=== PATIENT | male | born 1960 | race Two or more races ===

== ENCOUNTER 2023-05-29 17:35 | Inpatient (IN) | payer OTHER ==
[~2023-05-29] VITALS: Ht 175.3 cm; Wt 87.5 kg
[2023-05-29] MEDS ORDERED: TACR1CAP2 PO (19:52)
[2023-05-29 20:00] VITALS: BP 117/60; TEMP 97.9; O2SAT 93; O2SAT 96
[2023-05-29] MEDS ORDERED: LOSA100T31 PO (20:00)
[2023-05-29] MEDS ORDERED: OMEP40CA21 PO (20:40)
[2023-05-29] MEDS ORDERED: NIFE90TA2 PO (20:40)
[2023-05-29] MEDS ORDERED: PRED5TAB48 PO (20:40)
[2023-05-29] MEDS ORDERED: TRAM50TA2 PO (20:40)
[2023-05-29] MEDS ORDERED: HYDR100T27 PO (20:40)
[2023-05-29] MEDS ORDERED: CHOL100043 PO (20:40)
[2023-05-29] MEDS ORDERED: ROSU20TA2 PO (20:40)
[2023-05-29] MEDS ORDERED: MYCO500T PO (20:41)
[2023-05-29] MEDS ORDERED: CINA30TA2 PO (20:41)
[2023-05-29] MEDS ORDERED: FURO-145 PO (20:41)
[2023-05-29] MEDS ORDERED: INSU100V11 SQ (20:41)
[2023-05-29] MEDS ORDERED: APIX5TAB4 PO (20:41)
[2023-05-29] MEDS ORDERED: MORPHINE SULFATE INJ 4 MG/ML DISP.SYRIN IV PRN (22:30)
[2023-05-30] MEDS ORDERED: CEFEPIME 1 GM in IV D5W 50 ML IV SCH ×2
[2023-05-30] MEDS ORDERED: MAG HYDROX/AL HYDROX/SIMETH 30 ML UDC PO PRN
[2023-05-30] MEDS ORDERED: ONDANSETRON HCL/PF 4 MG/2 ML VIAL IVP PRN
[2023-05-30] MEDS ORDERED: ZOLPIDEM TARTRATE 5 MG TABLET PO PRN
[2023-05-30] MEDS ORDERED: Z GUARD REMEDY 4 OZ OINT TP PRN
[2023-05-30] MEDS ORDERED: ACETAMINOPHEN 325 MG TABLET PO PRN
[2023-05-30] MEDS ORDERED: DEXTROSE 50%-WATER 50 ML DISP.SYRIN IV PRN
[2023-05-30] MEDS ORDERED: MAGNESIUM HYDROXIDE 30 ML UDC PO PRN
[2023-05-30] MEDS ORDERED: CEFEPIME 1 GM VIAL ONE (00:42)
[2023-05-30] MEDS ORDERED: VANCOMYCIN 1 GM in IV D5W 250ml IV ONE (01:00)
[2023-05-30] MEDS ORDERED: VANCOMYCIN 1 GM /D5W 250 ML PB IV ONE (02:19)
[2023-05-30 05:57] LABS: BASOPHILS # (AUTO) 0.1 K/uL (0.0-0.2); EOSINOPHILS # (AUTO) 0.1 K/uL (0.0-0.7); EOSINOPHILS % (AUTO) 0.8 % (0.0-6.0); HEMATOCRIT 49 % (39-51); HEMOGLOBIN 15.9 g/dL (13.5-17.5); LYMPHOCYTES # (AUTO) 0.8 K/uL (0.8-4.8); LYMPHOCYTES % (AUTO) 8.4 % (20.0-44.0); MEAN CORPUSCULAR HEMOGLOBIN 29 PG (26.0-33.0); MEAN CORPUSCULAR HGB CONC 33 g/dl (31.0-36.0); MEAN CORPUSCULAR VOLUME 88 fL (80-96); MONOCYTES # (AUTO) 0.9 K/uL (0.1-1.30); MONOCYTES % (AUTO) 9.3 % (2.0-12.0); NEUTROPHILS # (AUTO) 7.5 K/uL (1.8-8.9); NEUTROPHILS % (AUTO) 80.5 % (43.0-81.0); PLATELET COUNT (AUTO) 233 K/uL (150-450); RED BLOOD CELL COUNT(AUTO) 5.56 MIL/uL (4.5-6.0); RED CELL DISTRIBUTION WIDTH 17.1 % (11.5-15.0); WHITE BLOOD COUNT (AUTO) 9.4 K/uL (4.3-11.0)
[2023-05-30 06:22] LABS: CALCIUM, SERUM 10.1 mg/dL (8.5-10.1); CREATININE 0.9 mg/dL (0.6-1.3); MAGNESIUM 1.7 mg/dL (1.8-2.4); PHOSPHORUS 2.4 mg/dL (2.5-4.9); POTASSIUM 4.2 mmol/L (3.5-5.1)
[2023-05-30 06:25] LABS: THYROID STIMULATING HORMONE 0.613 uIU/mL (0.358-3.74)
[2023-05-30] MEDS: BLOOD SUGAR DIAGNOSTIC 1 EACH STRIP IN SCH ×4 (06:34→22:31)
[2023-05-30] MEDS: INSULIN REGULAR, HUMAN 100 UNIT/ML 3 ML VIAL SQ PRN ×4 (06:35→23:04)
[2023-05-30 08:00] VITALS: BP 121/50; TEMP 98.4; O2SAT 96
[2023-05-30] MEDS ORDERED: CEFEPIME 1 GM in IV D5W 50 ML IV ONE (08:00)
[2023-05-30] MEDS: TACROLIMUS ANHYDROUS 0.5 MG CAPSULE PO SCH ×2 (08:46→21:47)
[2023-05-30] MEDS: CINACALCET HCL 30 MG TABLET PO SCH (08:46)
[2023-05-30] MEDS: CHOLECALCIFEROL 1,000 UNIT TABLET (VIT D3) PO SCH (08:47)
[2023-05-30] MEDS: predniSONE 5 MG TABLET PO SCH (08:47)
[2023-05-30] MEDS: ATORVASTATIN 40 MG TABLET PO SCH (08:47)
[2023-05-30] MEDS: FUROSEMIDE 20 MG TABLET PO SCH (08:47)
[2023-05-30] MEDS: MYCOPHENOLATE MOFETIL 250 MG CAPSULE PO SCH ×2 (08:47→21:47)
[2023-05-30] MEDS: hydrALAZINE HCL 50 MG TABLET PO SCH ×2 (08:50→21:49)
[2023-05-30] MEDS: LOSARTAN POTASSIUM 50 MG TABLET PO SCH (08:51)
[2023-05-30] MEDS: NIFEdipine XL (30MG) 30 MG TAB PO SCH (08:52)
[2023-05-30] MEDS: CEFEPIME 2 GM in IV D5W 100 ML IV SCH ×2 (08:54→21:27)
[2023-05-30] MEDS: APIXABAN 5 MG TABLET PO SCH ×2 (08:54→21:48)
[2023-05-30] MEDS ORDERED: Medication Not On Formulary EA (Rosuvastatin Calcium (Crestor) 20 MG) PO SCH (09:00)
[2023-05-30] MEDS ORDERED: PANTOPRAZOLE 40 MG VIAL IV SCH (09:00)
[2023-05-30] MEDS ORDERED: MAGNESIUM OXIDE 400 MG TABLET PO ONE (09:30)
[2023-05-30] MEDS: VANCOMYCIN 1 GM in IV D5W 250ml IV SCH (13:33)
[2023-05-30 16:00] VITALS: BP 140/63; TEMP 98.2; O2SAT 93
[2023-05-30] MEDS ORDERED: K PHOS NEUTRAL 250 MG TABLET PO ONE (16:00)
[2023-05-30 20:00] VITALS: BP 134/67; TEMP 98.4; O2SAT 94
[2023-05-31] MEDS: VANCOMYCIN 1 GM in IV D5W 250ml IV SCH ×2 (01:30→14:18)
[2023-05-31 06:43] LABS: BASOPHILS # (AUTO) 0.1 K/uL (0.0-0.2); BASOPHILS % (AUTO) 0.9 % (0.0-2.0); EOSINOPHILS # (AUTO) 0.2 K/uL (0.0-0.7); EOSINOPHILS % (AUTO) 2.4 % (0.0-6.0); HEMATOCRIT 50 % (39-51); HEMOGLOBIN 16.2 g/dL (13.5-17.5); LYMPHOCYTES # (AUTO) 0.7 K/uL (0.8-4.8); LYMPHOCYTES % (AUTO) 7.7 % (20.0-44.0); MEAN CORPUSCULAR HEMOGLOBIN 28 PG (26.0-33.0); MEAN CORPUSCULAR HGB CONC 32 g/dl (31.0-36.0); MEAN CORPUSCULAR VOLUME 88 fL (80-96); MONOCYTES # (AUTO) 0.9 K/uL (0.1-1.30); MONOCYTES % (AUTO) 9.7 % (2.0-12.0); NEUTROPHILS # (AUTO) 7.4 K/uL (1.8-8.9); NEUTROPHILS % (AUTO) 79.3 % (43.0-81.0); PLATELET COUNT (AUTO) 250 K/uL (150-450); RED BLOOD CELL COUNT(AUTO) 5.72 MIL/uL (4.5-6.0); RED CELL DISTRIBUTION WIDTH 16.5 % (11.5-15.0); WHITE BLOOD COUNT (AUTO) 9.3 K/uL (4.3-11.0)
[2023-05-31] MEDS: BLOOD SUGAR DIAGNOSTIC 1 EACH STRIP IN SCH ×4 (06:46→21:31)
[2023-05-31] MEDS: INSULIN REGULAR, HUMAN 100 UNIT/ML 3 ML VIAL SQ PRN ×4 (06:52→21:43)
[2023-05-31 07:02] LABS: CALCIUM, SERUM 9.9 mg/dL (8.5-10.1); CREATININE 0.9 mg/dL (0.6-1.3); MAGNESIUM 1.8 mg/dL (1.8-2.4); PHOSPHORUS 2.7 mg/dL (2.5-4.9); POTASSIUM 3.9 mmol/L (3.5-5.1)
[2023-05-31 08:00] VITALS: BP 144/77; TEMP 98.2; O2SAT 99
[2023-05-31] MEDS: CHOLECALCIFEROL 1,000 UNIT TABLET (VIT D3) PO SCH (08:24)
[2023-05-31] MEDS: TACROLIMUS ANHYDROUS 0.5 MG CAPSULE PO SCH ×2 (08:24→21:31)
[2023-05-31] MEDS: CEFEPIME 2 GM in IV D5W 100 ML IV SCH ×2 (08:24→21:07)
[2023-05-31] MEDS: PANTOPRAZOLE 40 MG TABLET.DR PO SCH (08:25)
[2023-05-31] MEDS: MYCOPHENOLATE MOFETIL 250 MG CAPSULE PO SCH ×2 (08:25→21:28)
[2023-05-31] MEDS: predniSONE 5 MG TABLET PO SCH (08:25)
[2023-05-31] MEDS: ATORVASTATIN 40 MG TABLET PO SCH (08:25)
[2023-05-31] MEDS: FUROSEMIDE 20 MG TABLET PO SCH (08:26)
[2023-05-31] MEDS: LOSARTAN POTASSIUM 50 MG TABLET PO SCH (08:26)
[2023-05-31] MEDS: NIFEdipine XL (30MG) 30 MG TAB PO SCH (08:26)
[2023-05-31] MEDS: hydrALAZINE HCL 50 MG TABLET PO SCH ×2 (08:27→21:29)
[2023-05-31] MEDS: APIXABAN 5 MG TABLET PO SCH ×2 (08:30→21:31)
[2023-05-31 16:00] VITALS: BP 142/82; TEMP 98.2; O2SAT 96
[2023-05-31 20:57] VITALS: BP 137/56; TEMP 98.2; O2SAT 100
[2023-06-01] MEDS: VANCOMYCIN 1 GM in IV D5W 250ml IV SCH ×2 (02:41→14:08)
[2023-06-01 06:07] LABS: CALCIUM, SERUM 10.1 mg/dL (8.5-10.1); CREATININE 1.2 mg/dL (0.6-1.3); MAGNESIUM 1.8 mg/dL (1.8-2.4); PHOSPHORUS 2.9 mg/dL (2.5-4.9); POTASSIUM 4.1 mmol/L (3.5-5.1)
[2023-06-01 06:09] LABS: EOSINOPHILS # (AUTO) 0.4 K/uL (0.0-0.7); EOSINOPHILS % (AUTO) 3.5 % (0.0-6.0); HEMATOCRIT 53 % (39-51); HEMOGLOBIN 17.1 g/dL (13.5-17.5); LYMPHOCYTES # (AUTO) 1.1 K/uL (0.8-4.8); LYMPHOCYTES % (AUTO) 10.6 % (20.0-44.0); MEAN CORPUSCULAR HEMOGLOBIN 28 PG (26.0-33.0); MEAN CORPUSCULAR HGB CONC 32 g/dl (31.0-36.0); MEAN CORPUSCULAR VOLUME 88 fL (80-96); MONOCYTES # (AUTO) 0.9 K/uL (0.1-1.30); MONOCYTES % (AUTO) 8.8 % (2.0-12.0); NEUTROPHILS # (AUTO) 7.9 K/uL (1.8-8.9); NEUTROPHILS % (AUTO) 77.1 % (43.0-81.0); PLATELET COUNT (AUTO) 248 K/uL (150-450); RED BLOOD CELL COUNT(AUTO) 6.05 MIL/uL (4.5-6.0); RED CELL DISTRIBUTION WIDTH 16.8 % (11.5-15.0); WHITE BLOOD COUNT (AUTO) 10.2 K/uL (4.3-11.0)
[2023-06-01] MEDS: BLOOD SUGAR DIAGNOSTIC 1 EACH STRIP IN SCH ×4 (06:28→21:14)
[2023-06-01] MEDS: INSULIN REGULAR, HUMAN 100 UNIT/ML 3 ML VIAL SQ PRN ×4 (06:32→21:42)
[2023-06-01 08:00] VITALS: BP 154/88; TEMP 98.4; O2SAT 96
[2023-06-01] MEDS: hydrALAZINE HCL 50 MG TABLET PO SCH ×2 (09:37→21:10)
[2023-06-01] MEDS: predniSONE 5 MG TABLET PO SCH (09:37)
[2023-06-01] MEDS: CHOLECALCIFEROL 1,000 UNIT TABLET (VIT D3) PO SCH (09:38)
[2023-06-01] MEDS: NIFEdipine XL (30MG) 30 MG TAB PO SCH (09:38)
[2023-06-01] MEDS: PANTOPRAZOLE 40 MG TABLET.DR PO SCH (09:38)
[2023-06-01] MEDS: TACROLIMUS ANHYDROUS 0.5 MG CAPSULE PO SCH ×2 (09:38→21:11)
[2023-06-01] MEDS: FUROSEMIDE 20 MG TABLET PO SCH (09:38)
[2023-06-01] MEDS: CINACALCET HCL 30 MG TABLET PO SCH (09:38)
[2023-06-01] MEDS: ATORVASTATIN 40 MG TABLET PO SCH (09:38)
[2023-06-01] MEDS: MYCOPHENOLATE MOFETIL 250 MG CAPSULE PO SCH ×2 (09:39→21:11)
[2023-06-01] MEDS: LOSARTAN POTASSIUM 50 MG TABLET PO SCH (09:44)
[2023-06-01] MEDS: APIXABAN 5 MG TABLET PO SCH ×2 (09:46→21:13)
[2023-06-01] MEDS: CEFEPIME 2 GM in IV D5W 100 ML IV SCH ×2 (10:42→21:08)
[2023-06-01] MEDS ORDERED: LIDOCAINE HCL/PF 1% 30 ML SDV IJ ONE (11:00)
[2023-06-01 16:00] VITALS: BP 132/71; TEMP 98.6; O2SAT 96
[2023-06-01] MEDS: TRAMADOL HCL 50 MG TABLET PO PRN (23:17)
[2023-06-02] MEDS: VANCOMYCIN 1 GM in IV D5W 250ml IV SCH ×2 (01:59→14:10)
[2023-06-02] MEDS: BLOOD SUGAR DIAGNOSTIC 1 EACH STRIP IN SCH ×4 (06:27→22:03)
[2023-06-02] MEDS: INSULIN REGULAR, HUMAN 100 UNIT/ML 3 ML VIAL SQ PRN ×3 (06:32→22:10)
[2023-06-02 06:44] LABS: BASOPHILS # (AUTO) 0.1 K/uL (0.0-0.2); BASOPHILS % (AUTO) 1.4 % (0.0-2.0); EOSINOPHILS # (AUTO) 0.4 K/uL (0.0-0.7); EOSINOPHILS % (AUTO) 4.7 % (0.0-6.0); HEMATOCRIT 51 % (39-51); HEMOGLOBIN 16.4 g/dL (13.5-17.5); LYMPHOCYTES # (AUTO) 0.9 K/uL (0.8-4.8); LYMPHOCYTES % (AUTO) 10.1 % (20.0-44.0); MEAN CORPUSCULAR HEMOGLOBIN 28 PG (26.0-33.0); MEAN CORPUSCULAR HGB CONC 32 g/dl (31.0-36.0); MEAN CORPUSCULAR VOLUME 88 fL (80-96); MONOCYTES # (AUTO) 0.9 K/uL (0.1-1.30); MONOCYTES % (AUTO) 10.6 % (2.0-12.0); NEUTROPHILS # (AUTO) 6.4 K/uL (1.8-8.9); NEUTROPHILS % (AUTO) 73.2 % (43.0-81.0); PLATELET COUNT (AUTO) 240 K/uL (150-450); RED BLOOD CELL COUNT(AUTO) 5.83 MIL/uL (4.5-6.0); RED CELL DISTRIBUTION WIDTH 16.6 % (11.5-15.0); WHITE BLOOD COUNT (AUTO) 8.7 K/uL (4.3-11.0)
[2023-06-02 07:07] LABS: CALCIUM, SERUM 9.7 mg/dL (8.5-10.1); CREATININE 1.1 mg/dL (0.6-1.3); MAGNESIUM 1.8 mg/dL (1.8-2.4); PHOSPHORUS 2.9 mg/dL (2.5-4.9); POTASSIUM 4.1 mmol/L (3.5-5.1)
[2023-06-02 08:00] VITALS: BP 141/84; TEMP 98.3; O2SAT 94
[2023-06-02] MEDS: LOSARTAN POTASSIUM 50 MG TABLET PO SCH (08:17)
[2023-06-02] MEDS: hydrALAZINE HCL 50 MG TABLET PO SCH ×2 (08:18→21:00)
[2023-06-02] MEDS: MYCOPHENOLATE MOFETIL 250 MG CAPSULE PO SCH ×2 (08:18→21:41)
[2023-06-02] MEDS: TACROLIMUS ANHYDROUS 0.5 MG CAPSULE PO SCH ×2 (08:18→21:41)
[2023-06-02] MEDS: NIFEdipine XL (30MG) 30 MG TAB PO SCH (08:18)
[2023-06-02] MEDS: FUROSEMIDE 20 MG TABLET PO SCH (08:19)
[2023-06-02] MEDS: ATORVASTATIN 40 MG TABLET PO SCH (08:19)
[2023-06-02] MEDS: CHOLECALCIFEROL 1,000 UNIT TABLET (VIT D3) PO SCH (08:19)
[2023-06-02] MEDS: PANTOPRAZOLE 40 MG TABLET.DR PO SCH (08:19)
[2023-06-02] MEDS: APIXABAN 5 MG TABLET PO SCH ×2 (08:22→21:40)
[2023-06-02] MEDS: predniSONE 5 MG TABLET PO SCH (08:34)
[2023-06-02] MEDS: CEFEPIME 2 GM in IV D5W 100 ML IV SCH ×2 (08:39→21:14)
[2023-06-02 15:00] VITALS: BP 131/76; TEMP 98.4; O2SAT 96
[2023-06-02 20:05] VITALS: BP 106/55; TEMP 98; O2SAT 96
[2023-06-02] MEDS: INSULIN GLARGINE, 100 UNIT/ML CARTRIDGE SQ SCH (22:08)
[2023-06-03] MEDS: VANCOMYCIN 1 GM in IV D5W 250ml IV SCH ×2 (01:32→14:16)
[2023-06-03 06:41] LABS: CALCIUM, SERUM 10.5 mg/dL (8.5-10.1); POTASSIUM 4.1 mmol/L (3.5-5.1)
[2023-06-03 07:00] VITALS: BP 153/88; TEMP 97.9; O2SAT 97
[2023-06-03] MEDS: BLOOD SUGAR DIAGNOSTIC 1 EACH STRIP IN SCH ×4 (07:03→21:39)
[2023-06-03] MEDS: INSULIN REGULAR, HUMAN 100 UNIT/ML 3 ML VIAL SQ PRN ×4 (07:05→21:41)
[2023-06-03] MEDS: CEFEPIME 2 GM in IV D5W 100 ML IV SCH ×2 (09:31→21:27)
[2023-06-03] MEDS: TACROLIMUS ANHYDROUS 0.5 MG CAPSULE PO SCH ×2 (09:33→21:25)
[2023-06-03] MEDS: PANTOPRAZOLE 40 MG TABLET.DR PO SCH (09:33)
[2023-06-03] MEDS: hydrALAZINE HCL 50 MG TABLET PO SCH ×2 (09:33→21:00)
[2023-06-03] MEDS: LOSARTAN POTASSIUM 50 MG TABLET PO SCH (09:34)
[2023-06-03] MEDS: MYCOPHENOLATE MOFETIL 250 MG CAPSULE PO SCH ×2 (09:34→21:25)
[2023-06-03] MEDS: CINACALCET HCL 30 MG TABLET PO SCH (09:34)
[2023-06-03] MEDS: CHOLECALCIFEROL 1,000 UNIT TABLET (VIT D3) PO SCH (09:34)
[2023-06-03] MEDS: ATORVASTATIN 40 MG TABLET PO SCH (09:35)
[2023-06-03] MEDS: FUROSEMIDE 20 MG TABLET PO SCH (09:35)
[2023-06-03] MEDS: predniSONE 5 MG TABLET PO SCH (09:35)
[2023-06-03] MEDS: NIFEdipine XL (30MG) 30 MG TAB PO SCH (09:35)
[2023-06-03] MEDS: TRAMADOL HCL 50 MG TABLET PO PRN (09:36)
[2023-06-03] MEDS: APIXABAN 5 MG TABLET PO SCH ×2 (09:38→21:26)
[2023-06-03 16:00] VITALS: BP 129/69; TEMP 98.1; O2SAT 92
[2023-06-03 20:00] VITALS: BP 102/65; TEMP 98.4; O2SAT 97
[2023-06-03] MEDS: INSULIN GLARGINE, 100 UNIT/ML CARTRIDGE SQ SCH (21:42)
[2023-06-04] MEDS: VANCOMYCIN 1 GM in IV D5W 250ml IV SCH (02:08)
[2023-06-04 06:31] LABS: CALCIUM, SERUM 9.8 mg/dL (8.5-10.1); CREATININE 1.1 mg/dL (0.6-1.3); POTASSIUM 3.8 mmol/L (3.5-5.1)
[2023-06-04] MEDS: BLOOD SUGAR DIAGNOSTIC 1 EACH STRIP IN SCH ×4 (06:31→21:28)
[2023-06-04 07:30] VITALS: BP 139/83; TEMP 98.1; O2SAT 97
[2023-06-04] MEDS: CHOLECALCIFEROL 1,000 UNIT TABLET (VIT D3) PO SCH (08:47)
[2023-06-04] MEDS: TACROLIMUS ANHYDROUS 0.5 MG CAPSULE PO SCH ×2 (08:47→21:19)
[2023-06-04] MEDS: MYCOPHENOLATE MOFETIL 250 MG CAPSULE PO SCH ×2 (08:47→21:19)
[2023-06-04] MEDS: ATORVASTATIN 40 MG TABLET PO SCH (08:47)
[2023-06-04] MEDS: PANTOPRAZOLE 40 MG TABLET.DR PO SCH (08:50)
[2023-06-04] MEDS: NIFEdipine XL (30MG) 30 MG TAB PO SCH (08:50)
[2023-06-04] MEDS: LOSARTAN POTASSIUM 50 MG TABLET PO SCH (08:51)
[2023-06-04] MEDS: hydrALAZINE HCL 50 MG TABLET PO SCH ×2 (08:51→21:19)
[2023-06-04] MEDS: FUROSEMIDE 20 MG TABLET PO SCH (08:51)
[2023-06-04] MEDS: predniSONE 5 MG TABLET PO SCH (08:51)
[2023-06-04] MEDS: APIXABAN 5 MG TABLET PO SCH ×2 (08:52→21:19)
[2023-06-04] MEDS: CEFEPIME 2 GM in IV D5W 100 ML IV SCH ×2 (09:01→21:18)
[2023-06-04] MEDS: INSULIN REGULAR, HUMAN 100 UNIT/ML 3 ML VIAL SQ PRN ×2 (12:05→21:33)
[2023-06-04 16:00] VITALS: BP_SYST 120; BP_SYST 127; BP_DIAS 69; BP_DIAS 83; TEMP 97.5; TEMP 97.6; O2SAT 96; O2SAT 99
[2023-06-04 20:00] VITALS: BP_SYST 105; BP_SYST 140; BP_DIAS 60; BP_DIAS 63; TEMP 98.1; O2SAT 96; O2SAT 97
[2023-06-04] MEDS: INSULIN GLARGINE, 100 UNIT/ML CARTRIDGE SQ SCH (21:34)
[2023-06-05 06:32] LABS: CALCIUM, SERUM 10.3 mg/dL (8.5-10.1); POTASSIUM 3.9 mmol/L (3.5-5.1)
[2023-06-05] MEDS: BLOOD SUGAR DIAGNOSTIC 1 EACH STRIP IN SCH ×4 (06:32→22:15)
[2023-06-05 07:30] VITALS: BP 134/77; TEMP 97.7; O2SAT 97
[2023-06-05] MEDS: MYCOPHENOLATE MOFETIL 250 MG CAPSULE PO SCH ×2 (08:37→20:45)
[2023-06-05] MEDS: CINACALCET HCL 30 MG TABLET PO SCH (08:38)
[2023-06-05] MEDS: FUROSEMIDE 20 MG TABLET PO SCH (08:38)
[2023-06-05] MEDS: predniSONE 5 MG TABLET PO SCH (08:38)
[2023-06-05] MEDS: CHOLECALCIFEROL 1,000 UNIT TABLET (VIT D3) PO SCH (08:38)
[2023-06-05] MEDS: TACROLIMUS ANHYDROUS 0.5 MG CAPSULE PO SCH ×2 (08:38→20:46)
[2023-06-05] MEDS: ATORVASTATIN 40 MG TABLET PO SCH (08:38)
[2023-06-05] MEDS: PANTOPRAZOLE 40 MG TABLET.DR PO SCH (08:38)
[2023-06-05] MEDS: LOSARTAN POTASSIUM 50 MG TABLET PO SCH (08:39)
[2023-06-05] MEDS: NIFEdipine XL (30MG) 30 MG TAB PO SCH (08:40)
[2023-06-05] MEDS: APIXABAN 5 MG TABLET PO SCH ×2 (08:41→20:46)
[2023-06-05] MEDS: hydrALAZINE HCL 50 MG TABLET PO SCH ×2 (08:41→20:45)
[2023-06-05] MEDS: CEFEPIME 2 GM in IV D5W 100 ML IV SCH (08:45)
[2023-06-05] MEDS: INSULIN REGULAR, HUMAN 100 UNIT/ML 3 ML VIAL SQ PRN ×3 (11:31→22:16)
[2023-06-05 16:00] VITALS: BP 125/72; TEMP 98.1; O2SAT 96
[2023-06-05 20:00] VITALS: BP 129/68; TEMP 97.9; O2SAT 96
[2023-06-05] MEDS: CEFTRIAXONE 1 G in IV D5W 50 ML IV SCH (20:44)
[2023-06-05 21:32] VITALS: BP 129/68; TEMP 97.9; O2SAT 96
[2023-06-05] MEDS: INSULIN GLARGINE, 100 UNIT/ML CARTRIDGE SQ SCH (22:20)
[2023-06-06] MEDS: INSULIN REGULAR, HUMAN 100 UNIT/ML 3 ML VIAL SQ PRN ×3 (06:46→21:57)
[2023-06-06] MEDS: BLOOD SUGAR DIAGNOSTIC 1 EACH STRIP IN SCH ×4 (06:47→22:02)
[2023-06-06 07:17] LABS: CALCIUM, SERUM 9.9 mg/dL (8.5-10.1); CREATININE 1.1 mg/dL (0.6-1.3)
[2023-06-06 08:43] VITALS: BP 132/71; TEMP 98.1; O2SAT 97
[2023-06-06] MEDS: hydrALAZINE HCL 50 MG TABLET PO SCH ×2 (09:29→21:30)
[2023-06-06] MEDS: LOSARTAN POTASSIUM 50 MG TABLET PO SCH (09:29)
[2023-06-06] MEDS: MYCOPHENOLATE MOFETIL 250 MG CAPSULE PO SCH ×2 (09:29→21:30)
[2023-06-06] MEDS: FUROSEMIDE 20 MG TABLET PO SCH (09:29)
[2023-06-06] MEDS: TACROLIMUS ANHYDROUS 0.5 MG CAPSULE PO SCH ×2 (09:29→21:26)
[2023-06-06] MEDS: PANTOPRAZOLE 40 MG TABLET.DR PO SCH (09:30)
[2023-06-06] MEDS: NIFEdipine XL (30MG) 30 MG TAB PO SCH (09:30)
[2023-06-06] MEDS: CHOLECALCIFEROL 1,000 UNIT TABLET (VIT D3) PO SCH (09:30)
[2023-06-06] MEDS: predniSONE 5 MG TABLET PO SCH (09:30)
[2023-06-06] MEDS: ATORVASTATIN 40 MG TABLET PO SCH (09:31)
[2023-06-06] MEDS: APIXABAN 5 MG TABLET PO SCH ×2 (09:32→21:29)
[2023-06-06 16:00] VITALS: BP 130/78; TEMP 97.7; O2SAT 98
[2023-06-06 20:00] VITALS: BP 127/67; TEMP 98; O2SAT 95
[2023-06-06] MEDS: CEFTRIAXONE 1 G in IV D5W 50 ML IV SCH (21:25)
[2023-06-06] MEDS: INSULIN GLARGINE, 100 UNIT/ML CARTRIDGE SQ SCH (22:01)
[2023-06-07 04:00] VITALS: BP 128/59; TEMP 97.8; O2SAT 100
[2023-06-07] MEDS: BLOOD SUGAR DIAGNOSTIC 1 EACH STRIP IN SCH ×4 (06:49→21:36)
[2023-06-07] MEDS: INSULIN REGULAR, HUMAN 100 UNIT/ML 3 ML VIAL SQ PRN ×3 (06:50→21:38)
[2023-06-07 08:00] VITALS: BP 117/69; TEMP 97.7; O2SAT 97
[2023-06-07] MEDS: CINACALCET HCL 30 MG TABLET PO SCH (08:54)
[2023-06-07] MEDS: TACROLIMUS ANHYDROUS 0.5 MG CAPSULE PO SCH ×2 (08:54→21:05)
[2023-06-07] MEDS: PANTOPRAZOLE 40 MG TABLET.DR PO SCH (08:54)
[2023-06-07] MEDS: CHOLECALCIFEROL 1,000 UNIT TABLET (VIT D3) PO SCH (08:54)
[2023-06-07] MEDS: ATORVASTATIN 40 MG TABLET PO SCH (08:55)
[2023-06-07] MEDS: predniSONE 5 MG TABLET PO SCH (08:55)
[2023-06-07] MEDS: MYCOPHENOLATE MOFETIL 250 MG CAPSULE PO SCH ×2 (08:55→21:04)
[2023-06-07] MEDS: LOSARTAN POTASSIUM 50 MG TABLET PO SCH (08:55)
[2023-06-07] MEDS: FUROSEMIDE 20 MG TABLET PO SCH (08:55)
[2023-06-07] MEDS: hydrALAZINE HCL 50 MG TABLET PO SCH ×2 (08:56→21:06)
[2023-06-07] MEDS: NIFEdipine XL (30MG) 30 MG TAB PO SCH (08:56)
[2023-06-07] MEDS: APIXABAN 5 MG TABLET PO SCH ×2 (08:57→21:07)
[2023-06-07 20:33] VITALS: BP 141/70; TEMP 98.5; O2SAT 96
[2023-06-07] MEDS: TRAMADOL HCL 50 MG TABLET PO PRN (21:05)
[2023-06-07] MEDS: CEFTRIAXONE 1 G in IV D5W 50 ML IV SCH (21:05)
[2023-06-07] MEDS: INSULIN GLARGINE, 100 UNIT/ML CARTRIDGE SQ SCH (21:39)
[2023-06-08] MEDS: BLOOD SUGAR DIAGNOSTIC 1 EACH STRIP IN SCH ×2 (06:40→11:25)
[2023-06-08] MEDS: INSULIN REGULAR, HUMAN 100 UNIT/ML 3 ML VIAL SQ PRN ×2 (06:41→11:26)
[2023-06-08 08:00] VITALS: BP 136/78; TEMP 97.8; O2SAT 97
[2023-06-08] MEDS: FUROSEMIDE 20 MG TABLET PO SCH (08:29)
[2023-06-08] MEDS: ATORVASTATIN 40 MG TABLET PO SCH (08:29)
[2023-06-08] MEDS: predniSONE 5 MG TABLET PO SCH (08:29)
[2023-06-08] MEDS: PANTOPRAZOLE 40 MG TABLET.DR PO SCH (08:29)
[2023-06-08] MEDS: CHOLECALCIFEROL 1,000 UNIT TABLET (VIT D3) PO SCH (08:29)
[2023-06-08] MEDS: TACROLIMUS ANHYDROUS 0.5 MG CAPSULE PO SCH (08:29)
[2023-06-08] MEDS: hydrALAZINE HCL 50 MG TABLET PO SCH (08:30)
[2023-06-08] MEDS: MYCOPHENOLATE MOFETIL 250 MG CAPSULE PO SCH (08:32)
[2023-06-08] MEDS: NIFEdipine XL (30MG) 30 MG TAB PO SCH (08:32)
[2023-06-08 08:33] VITALS: BP 136/78
[2023-06-08] MEDS: LOSARTAN POTASSIUM 50 MG TABLET PO SCH (08:33)
[2023-06-08] MEDS: APIXABAN 5 MG TABLET PO SCH (08:35)
[2023-06-08] MEDS ORDERED: HYDR-3972 PO (09:44)
[2023-06-08] MEDS ORDERED: ACID1TAB12 PO (09:44)
[2023-06-08] MEDS ORDERED: AMOX500T2 PO (09:44)
== END 2023-06-08 14:30 | DRG 580 ==
LOC: MED 18:46
PROVIDERS: ADMIT Nurse Practitioner Acute Care; ATTEND Nurse Practitioner Acute Care
PROC: 0KBW0ZZ Excision of Left Foot Muscle, Open Approach (ICD-10-PCS; principal; 2023-06-01)
DX: L03.116 Cellulitis of left lower limb (principal); D84.9 Immunodeficiency, unspecified; L02.612 Cutaneous abscess of left foot; Z94.0 Kidney transplant status; I48.91 Unspecified atrial fibrillation; E11.621 Type 2 diabetes mellitus with foot ulcer; E11.42 Type 2 diabetes mellitus with diabetic polyneuropathy; L97.529 Non-pressure chronic ulcer of other part of left foot with unspecified severity; E78.5 Hyperlipidemia, unspecified; Z86.73 Personal history of transient ischemic attack (TIA), and cerebral infarction without residual deficits; Z79.01 Long term (current) use of anticoagulants; Z20.822 Contact with and (suspected) exposure to COVID-19; B96.4 Proteus (mirabilis) (morganii) as the cause of diseases classified elsewhere; E11.65 Type 2 diabetes mellitus with hyperglycemia; S91.302A Unspecified open wound, left foot, initial encounter; X58.XXXA Exposure to other specified factors, initial encounter; Y93.9 Activity, unspecified; Y92.009 Unspecified place in unspecified non-institutional (private) residence as the place of occurrence of the external cause; Z79.4 Long term (current) use of insulin
CPT/HCPCS: 36415; 71045-TC; 73718-TC; 80048-TC; 80061-TC; 80202-TC; 82962-TC; 83735-TC; 84100-TC; 84443-TC; 85025-TC; 97110-TC; 97116-TC; 97530-TC; A4223; A6253; A6403; C9113; G0378; J0692; J0696; J1815; J3370; J3490; J7050; J7060; J7507; J7512; J7517